=== PATIENT | female | born 1985 ===

== ENCOUNTER 2017-03-28 19:51 | Emergency (ER) | payer MEDICAID ==
--- NOTE | 2017-03-28 21:50 | OBDCSUM ---
Datetime: 03/28/2017 20:59 Discharged to, Provider: Home Follow up at, Provider: [facility] Disch Instr Activity: Normal activity Disch Instr Diet: Regular Discharge Diagnosis, Provider: False Labor - Undelivered Discharge Time: 03/28/2017 20:59 Follow up in weeks, Provider: 04/04/2017 Disch Referrals: None Disch Activity Restrictions: No lifting
--- NOTE | 2017-03-28 21:50 | OBHP ---
Datetime: 03/28/2017 20:27 IP Adm Impression: , intrauterine IP Admit Plan: Discharge home Admit Comment, IP Provider: 32 yo at 31.2 weeks gestation (with repeat C/s scheduled at 39.0 weeks for 05/21/17) confirmed by u/s presents to [facility] with complaints of intemittent back and abdomi nal pain. She describes pain as "cramps" and states that they occur every 15-20 minutes, and come and go, and do not radiate. Reports movement, denies loss of fluid, vaginal bleeding or regular co ntractions. Last sexual activity 3 days ago. OBhx: NVDx1 at term, C-sectionx1 due to breech presentation. Medical hx: none, denies Surg hx: x1 Social hx: denies tobacco use, alcohol use, drug use. Medications: vitamins Allergies: NKDA Pre- care: [facility]. Last visit to clinic: 03/24. Last u/s: 03/22, was told that fetus is now vertex presentation Next appt in clinic: 04/04 Next u/s: 04/18. ROS: no chest pain, no shortness of breath, no nausea, vomiting, diarrhea or GI upset, no burning with urination. PE: BP 103/62, HR 79 General: AAOx3, not in acute distress CV: S1,S2, RRR Abd: gravid, +BS Back: negative for CVA tenderness Extremities: no edema, no pain on palpation Pelvic exam: cervix long, thick, closed Assessment: 32 yo with IUP at 31.2 weeks. Had one contraction in [facility]. Not in active labor. Plan: Discharge home with labor pre-cautions. Addendum: discussed labor precautions with patient; advised to follow up with provider at [facility] as scheduled. [email or web address] Addendum by Dr. Howard: Patient evaluated by myself independently and I agree with the above. The p atient is a @ 31.2 wks, previous x 1, presents with abdominal contractions, no vagi nal bleeding, +fm, no other positive symptoms. Patient LTC, BTP=[id number] Cat-I, one contraction observed. Patient does not appear to be in labor, no other signs of or maternal distress, will dishcarge home with labor precautions. F/U in clinic Extremities - PN: Normal Abdomen - PN: Normal Back - PN: Normal Breast - PN: Not Done Lungs - PN: Normal Heart - PN: Normal Thyroid - PN: Not Done Neurologic - PN: Normal HEENT - PN: Normal General - PN: Normal FHR - Baseline A Provider: 150 Contraction Comments Provider: one noted Comments, ACOG Physical Exam: Cevix long, thick, closed. Gestation - Est Wks by US: 31.2 EGA AdmitDate IP: 31.2 IP Chief Complaint: Maternal discomfort NICHD Variability Prov Fetus A: Moderate 6-25bpm NICHD Accel Fetus A IP Provider: 15X15 FHR Category Provider Fetus A: Category I Dilatation, Provider: long Effacement, Provider: thick Station, Provider: -3
[2017-03-29 01:49] VITALS: BP 95/62; PULSE 79; RESP 17; TEMP 98.6
== END 2017-03-28 21:00 | disposition home or self-care (01) ==
LOC: H.EROB2 19:51
DX: O47.03 False labor before 37 completed weeks of gestation, third trimester (principal); Z3A.31 31 weeks gestation of pregnancy; Z87.59 Personal history of other complications of pregnancy, childbirth and the puerperium

== ENCOUNTER 2017-05-09 15:03 | Emergency (ER) | payer MEDICAID ==
[2017-05-09 16:04] VITALS: BMI 23.0
[2017-05-09] MEDS ORDERED: Lactated Ringer's 1,000 ML IV SCH (16:30)
[2017-05-09 18:33] LABS: RBC URINE 29 /hpf (0-3); URINE BACTERIA RARE (<OCC); URINE BILIRUBIN NEGATIVE (NEGATIVE); URINE BLOOD SMALL (NEGATIVE); URINE COLOR YELLOW (YELLOW); URINE GLUCOSE (UA) NEG (Normal); URINE KETONE NEGATIVE (NEGATIVE); URINE LEUKOCYTE ESTERASE MOD Leu/uL (Negative); URINE PROTEIN NEGATIVE (NEGATIVE); WBC URINE 6 /hpf (0-5)
[2017-05-09 23:12] VITALS: BP 92/50; PULSE 80; RESP 18; TEMP 98.3; O2SAT 100
== END 2017-05-09 18:52 | disposition home or self-care (01) ==
LOC: H.EROB2 15:03 → H.EROB 15:36 → H.EROB2 18:52
DX: O26.93 Pregnancy related conditions, unspecified, third trimester (principal); M54.5 Low back pain; Z3A.37 37 weeks gestation of pregnancy; Z87.59 Personal history of other complications of pregnancy, childbirth and the puerperium
CPT/HCPCS: 81003; 87086; 99283; J7120

== ENCOUNTER 2017-05-14 07:34 | Emergency (ER) | payer MEDICAID ==
[2017-05-14 08:02] VITALS: BMI 23.6
[2017-05-14 15:16] VITALS: BP 108/71; PULSE 72; RESP 18; TEMP 98.1; O2SAT 99
--- NOTE | 2017-05-14 18:09 | OBHP ---
Datetime: 05/14/2017 10:10 IP Admit Plan: Observation/Evaluation; Discharge home Admit Comment, IP Provider: 32YO @ 38wks IUP presented to [facility] with SROM. Findings inconsistent with SROM. Bedside u/s exhibited multiples pockets of fluids. Specu exam neg-neg nitrazine, neg pool ing and neg fern. Pt was seen having occasionalq ctx on monitor. Given clear liquids and asked to walk. Pt is comfortable, NAD. strip is reactive Cervx remains closed/thick/pos Will d/c pt home with follow up with Dr. Holden on . Pt given labor precautions and pt agrees with plan. Shweta Madison, PGY I [facility]...With PGY1 I saw and examined this pt. Agree with note JR HERI done by me 10cm - adequate fluid Pelvic Type - PN: Adequate Extremities - PN: Normal Abdomen - PN: Normal Back - PN: Normal Breast - PN: Normal Lungs - PN: Normal Heart - PN: Normal Thyroid - PN: Not Done Neurologic - PN: Normal HEENT - PN: Normal General - PN: Normal FHR - Baseline A Provider: 140 IP Hx Assessment: The History has been Reviewed and is Current EGA AdmitDate IP: 38.0 Vital Signs Provider: Reviewed; Within Normal Limits IP Chief Complaint: Suspected ruptured membranes NICHD Variability Prov Fetus A: Moderate 6-25bpm NICHD Accel Fetus A IP Provider: 15X15 FHR Category Provider Fetus A: Category I Genitourinary Exam: Normal DTRs - PN: Not Done Datetime: 05/14/2017 08:31 IP Adm Impression: Term, intrauterine ; No Active Labor; Intact Membranes Presentation-Admit: Vertex Pool Provider: Negative Nitrazine Provider: Negative Ferning Provider: Negative NICHD Decel Fetus A IP Provider: None Dilatation, Provider: 0 Effacement, Provider: 0 Station, Provider: high Datetime: 05/09/2017 16:26 IP Chief Complaint Other: low back pain
--- NOTE | 2017-05-14 18:11 | OBDCSUM ---
Datetime: 05/14/2017 10:08 Discharged to, Provider: Home Follow up at, Provider: Scheduled for a on 05/23/17 Disch Instr Activity: Normal activity Disch Instr Diet: Regular Discharge Diagnosis, Provider: False Labor - Undelivered Discharge Time: 05/14/2017 10:10 Follow up in weeks, Provider: 05/23/17 at 12:30 pm Disch Referrals: None Discharge Comment, Provider: [facility]...On rounds, I saw and examined this pt. Agree with note JR
== END 2017-05-14 10:15 | disposition home or self-care (01) ==
LOC: H.EROB2 07:34
DX: O47.1 False labor at or after 37 completed weeks of gestation (principal); Z3A.38 38 weeks gestation of pregnancy; O26.93 Pregnancy related conditions, unspecified, third trimester; R10.2 Pelvic and perineal pain

== ENCOUNTER 2017-05-23 10:44 | Inpatient (IN) | payer MEDICAID ==
[2017-05-23] MEDS: Lactated Ringer's 1,000 ML IV SCH ×2 (10:45→11:50)
[2017-05-23] MEDS ORDERED: Lactated Ringer's 1,000 ML IV SCH (10:45)
[2017-05-23] MEDS ORDERED: Oxytocin 30 UNITS in Sodium Chloride 0.9% 500 ML IV SCH (10:45)
[2017-05-23] MEDS ORDERED: ceFAZolin IV 1 gm in Dextrose 1 GM/50 ML BAG IVPB ONE (11:00)
[2017-05-23 11:18] LABS: BASO % 0.5 % (0.0-2.0); EOS % 0.6 % (0.0-4.0); HEMATOCRIT 38.3 % (34.0-47.0); LYMPH # 1.7 K/uL (1.0-4.3); LYMPH % 20.3 % (20.0-40.0); MEAN CELL VOLUME 91.3 fl (81.0-99.0); MEAN CORPUSCULAR HEMOGLOBIN 30.2 pg (27.0-31.0); MEAN CORPUSCULAR HGB CONC 33.1 g/dL (33.0-37.0); MEAN PLATELET VOLUME 9.2 fl (7.2-11.7); MONO # 0.6 K/uL (0.0-0.8); NEUT # 5.9 K/uL (1.8-7.0); NEUT % 71.6 % (50.0-75.0); NRBC % 0.1 % (0.0-0.0); RED CELL DISTRIBUTION WIDTH 12.8 % (11.5-14.5); WHITE BLOOD COUNT 8.3 K/uL (4.8-10.8)
[2017-05-23] MEDS ORDERED: Sodium Chloride 0.9% 10 ML IV ONE (12:13)
[2017-05-23] MEDS ORDERED: Morphine 1 mg/ml preservative-free Inj(Duramorph) ONE (12:13)
[2017-05-23] MEDS ORDERED: ePHEDrine 50 mg/ml Inj ONE (12:13)
[2017-05-23] MEDS ORDERED: Phenylephrine 10 mg/ml Inj ONE (12:13)
[2017-05-23] MEDS ORDERED: Midazolam 2 MG/2 ML VIAL ONE (13:53)
[2017-05-23] MEDS ORDERED: Propofol 10 mg/ml Inj (20 ML) ONE (14:14)
[2017-05-23] MEDS ORDERED: Oxycodone/Acetaminophen 5/325 mg Tab PO PRN (14:22)
[2017-05-23] MEDS ORDERED: DiphenhydrAMINE 50 mg/ml Inj IVP PRN ×2 (14:49→17:27)
[2017-05-23] MEDS ORDERED: Morphine 1 mg/ml preservative-free Inj(Duramorph) EPI ONE ×2 (14:49→17:27)
[2017-05-23] MEDS ORDERED: Oxytocin 30 UNITS in Sodium Chloride 0.9% 500 ML IV ONE (14:51)
--- NOTE | 2017-05-23 14:53 | OBADHP ---
Datetime: 05/23/2017 14:33 Admit Comment, IP Provider: Patient at 39+ wks, with previous csection, desires permanent sterilizat ion, presents for repeat csection with BTL today. Patient denies regular contractions, no vaginal ble eding or leakage of fluids. movement present. -- care at [facility] --O pos, 1hr GCT 65, Gc/Chlamydia negative, GBS negative, Rubella Immune, HIV negative, HepB Negat ruth, RPR- negative, PPD negative --Risks/ Benefits to procedure reviewed with patient and consent previously obtained in office. Juan smallwood also desires BTL and consent previously obtained as well --Ancef 1 gm --IVF running --Patient NPO --Anesthesia consulted Pelvic Type - PN: Adequate Extremities - PN: Normal Abdomen - PN: Normal Back - PN: Normal Breast - PN: Normal Lungs - PN: Normal Heart - PN: Normal Thyroid - PN: Normal Neurologic - PN: Normal HEENT - PN: Normal General - PN: Normal Presentation-Admit: Vertex FHR - Baseline A Provider: 140 Gestation - Est Wks by US: 39.0 Vital Signs Provider: Reviewed IP Chief Complaint: Scheduled Section NICHD Variability Prov Fetus A: Moderate 6-25bpm NICHD Accel Fetus A IP Provider: 15X15 NICHD Decel Fetus A IP Provider: None Genitourinary Exam: Normal DTRs - PN: Normal EGA AdmitDate IP: 39.2 IP Adm Impression: Term, intrauterine IP Admit Plan: Admit to unit; Initiate Section protocol Datetime: 05/14/2017 10:10 IP Hx Assessment: The History has been Reviewed and is Current FHR Category Provider Fetus A: Category I Datetime: 05/14/2017 08:31 Pool Provider: Negative Nitrazine Provider: Negative Ferning Provider: Negative Dilatation, Provider: 0 Effacement, Provider: 0 Station, Provider: high Datetime: 05/09/2017 16:26 IP Chief Complaint Other: low back pain Datetime: 03/28/2017 20:27 Contraction Comments Provider: one noted Comments, ACOG Physical Exam: Cevix long, thick, closed.
--- NOTE | 2017-05-23 15:19 | OBDS ---
DELIVERY PERSONNEL Delivery Doctor: Pablo West MD Scrub Nurse: Ashlee Parra OBT Procurement Officer: Mariela Braxton RN Anesthesiologist: dr. Long MATERNAL INFORMATION Delivery Anesthesia: Spinal Medications in Delivery: pitocin Estimated Blood Loss (ml): 800 Placenta Cultured: No Maternal Complications: None Provider Comments: Repeat csection with bilateral tubal ligation performed without difficulty. See O perative report. LABOR SUMMARY EDC: 05/28/2017 00:00 No. Babies in Womb: 1 Attempted: No Labor Anesthesia: None LABOR INFORMATION Reason for Induction: Not Applicable Onset of Labor: NIL, pt is scheduled for repeat c/s with BTL at 1230 today. Group B Beta Strep: Negative Antibiotics # of Doses: n/a Antibiotics Time of Last Dose: n/a Steroids Given: None Reason Steroids Not Administered: Not Applicable MEMBRANES Membranes Rupture Method: Artificial Rupture of Membranes: 05/23/2017 13:52 Length of Rupture (hrs): 0.00 Amniotic Fluid Color: Clear Amniotic Fluid Amount: Moderate Amniotic Fluid Odor: Normal STAGES OF LABOR Stage 3 hrs: 0 Stage 3 min: 0 CSECTION DELIVERY Primary Indication: Repeat Elective Secondary Indication: Repeat Elective CSection Urgency: Elective CSection Incidence: Repeat Labor: N/A Elective: N/A CSection Incision: Lower Uterine Transverse Sterilization Procedure: [place] BABY A INFORMATION Infant Delivery Date/Time: 05/23/2017 13:52 Method of Delivery: Born in Route : No : N/A Forceps: N/A Vacuum Extraction: N/A Shoulder Dystocia : No SHOULDER DYSTOCIA BABY A Delivery Date/Time: 05/23/2017 13:52 PRESENTATION/POSITION BABY A Presentation: Cephalic Cephalic Presentation: Vertex Breech Presentation: N/A PLACENTA INFORMATION BABY A Placenta Delivery Time : 05/23/2017 13:52 Placenta Method of Delivery: Expressed Placenta Status: Delivered SCORES BABY A Heart Rate 1 min: >100 bpm Resp Effort 1 min: Good Cry Reflex Irritability 1 min: Cough or Sneeze or Pulls Away Muscle Tone 1 min: Active Motion Color 1 min: Body [place], Extremities Blue Resuscitation Effort 1 min: Tactile Stimulation SCORE 1 MIN: 9 Heart Rate 5 min: >100 bpm Resp Effort 5 min: Good Cry Reflex Irritability 5 min: Cough or Sneeze or Pulls Away Muscle Tone 5 min: Active Motion Color 5 min: Body [place], Extremities Blue Resuscitation Effort 5 min: Tactile Stimulation SCORE 5 MIN: 9 INFANT INFORMATION BABY A Gestational Age at Delivery: 39.5 Gestational Status: Term Infant Outcome : Liveborn Condition : Stable Sex: Female IDENTIFICATION/MEDS BABY A ID Band Number: [id number] ID Band Location: Left Leg; Left Arm Vitamin K Given : Not Given Erythromycin Given: Not Given WEIGHT/LENGTH BABY A Birthweight (gms): 3280 Infant Weight (lb): 7 Infant Weight (oz): 4 Length Inches: 19.5 inches CORD INFORMATION BABY A No. Cord Vessels: 3 Nuchal Cord : N/A Cord Blood Taken: Yes Infant Suction: Mouth; Nose ASSESSMENT BABY A Infant Complications: None Physical Findings at Delivery: Within Normal Limits Respirations: Appears Normal Garment Looper/ALS Called : No Care By: Transferred To: [facility]
[2017-05-23] MEDS: Oxycodone/Acetaminophen 5/325 mg Tab PO PRN (20:16)
[2017-05-24] MEDS: Oxycodone/Acetaminophen 5/325 mg Tab PO PRN ×2 (00:49→12:48)
[2017-05-24 06:34] LABS: HEMATOCRIT 33.9 % (34.0-47.0); MEAN CELL VOLUME 90.4 fl (81.0-99.0); MEAN CORPUSCULAR HEMOGLOBIN 30.3 pg (27.0-31.0); MEAN CORPUSCULAR HGB CONC 33.6 g/dL (33.0-37.0); WHITE BLOOD COUNT 13.8 K/uL (4.8-10.8)
[2017-05-24] MEDS ORDERED: Lactated Ringer's 1,000 ML IV SCH ×2 (10:20→11:50)
--- NOTE | 2017-05-24 11:17 | OBPPN ---
Datetime: 05/24/2017 06:34 PP Nausea Prov: Denies PP Flatus Prov: No PP BM Prov: No PP Heart Prov: Normal PP Lungs Prov: Normal PP Abdomen/Uterus Prov: Normal PP Lochia Prov: Normal PP CVA Tenderness Prov: Normal PP Extremities Prov: Normal PP Impression Prov: Normal progression PP Plan Prov: Continue present management PP Progress Note Prov: POD 1 32 y/o now seen and examined at bedside. Pt reports pain in the area and pain is controlled with pain medications. Has layne in place and urine is non-bloody. Pt denies passing ga s per rectum and no BM yet. Pt is tolerating liquid diet well. Pt is formula feeding the baby. Denie s chest pain, dyspnea, nausea, vomiting or calf pain. Physical Exam: General: A_O, resting comfortably in bed, NAD HEENT: oral mucosa moist. Lungs: CTA B/L, no wheezing, rhonchi or rales CVS: RRR, S1, S2 NL ABD: ND, +BS; Incision: has dressing over the area. Dressing looks C/D/I. No bloody discharge or oozin g seen over the dressing. EXT: no edema, negative Dion's sign. Neuro/psych: AAOX3. assessement: 32 yo s/p , POD#1 Plan: D/C layne this morning. Liquid diet, advance to regular diet as tolerated. SCD for DVT prophylaxis Percocet and Ibuprofen for pain management Encourage and ambulatory Anticipate discharge on 05/26/17 Sultan Beavers, PGY1 OB H addendum: pt seen and examined by me with Dr. Holt. During rounds was called by nurse guarding patient. She states patient complains of diz ziness when she had her sit up to get her out of bed. Patient currently in supine position and states that feels lightheaded and dizzy when she attempts to sit up. She states that the last Percocet she took was last night and that this morning she took a Motrin for pain. O: supine 101/66 p84 sitting 92/56 p97 standing 62/32 p106 Alert and oriented to person, place and time skin: pale 12/5 hgb 12.7 12/6 hgb 11.4 I: Orthostatic Hypotension assoc with Syncope POD1 CD P: 1 liter of LR bolus Place layne cath Repeat cbc Transfuse with 2uprbc above plan d/w pt. d/c motrin Vital Signs Provider PP: Reviewed; Within Normal Limits
[2017-05-24 11:18] LABS: BASO % 0.1 % (0.0-2.0); EOS % 0.2 % (0.0-4.0); HEMATOCRIT 38.8 % (34.0-47.0); LYMPH # 1.3 K/uL (1.0-4.3); LYMPH % 8.2 % (20.0-40.0); MEAN CELL VOLUME 91.1 fl (81.0-99.0); MEAN CORPUSCULAR HEMOGLOBIN 30.2 pg (27.0-31.0); MEAN CORPUSCULAR HGB CONC 33.1 g/dL (33.0-37.0); MONO # 0.6 K/uL (0.0-0.8); MONO % 3.8 % (0.0-10.0); NEUT % 87.7 % (50.0-75.0); PLATELET COUNT 186 K/uL (130-400); RED CELL DISTRIBUTION WIDTH 12.9 % (11.5-14.5); WHITE BLOOD COUNT 15.9 K/uL (4.8-10.8)
[2017-05-24 11:54] LABS: RBC URINE 7 /hpf (0-3); URINE BILIRUBIN NEGATIVE (NEGATIVE); URINE BLOOD MODERATE (NEGATIVE); URINE COLOR YELLOW (YELLOW); URINE GLUCOSE (UA) NEG (Normal); URINE KETONE TRACE mg/dL (NEGATIVE); URINE LEUKOCYTE ESTERASE NEG Leu/uL (Negative); URINE PROTEIN NEGATIVE (NEGATIVE); URINE UROBILINOGEN 0.2-1.0 mg/dL (0.2-1.0); WBC URINE 1 /hpf (0-5)
[2017-05-24 12:38] LABS: NEUTROPHIL 84 % (42-75); TOTAL CELLS COUNTED 100
[2017-05-24 14:19] LABS: ALKALINE PHOSPHATASE 122 U/L (38-126); ALT/SGPT 42 U/L (9-52); AST/SGOT 45 U/L (14-36); BILIRUBIN,TOTAL 0.3 mg/dl (0.2-1.3); BLOOD UREA NITROGEN 4 mg/dl (7-17); CALCIUM 8.2 mg/dL (8.4-10.2); CARBON DIOXIDE 25 mmol/L (22-30); CHLORIDE 108 mmol/L (98-107); GFR AFRICAN-AMERICAN > 60; GLUCOSE,RANDOM 94 mg/dL (65-105); POTASSIUM 3.6 MMOL/L (3.6-5.0); SODIUM 136 mmol/l (132-148); TOTAL PROTEIN 5.2 G/DL (6.3-8.2)
[2017-05-24 14:20] LABS: ALB/GLOB RATIO 0.9 (1.0-2.1)
--- NOTE | 2017-05-25 09:21 | OBPPN ---
Datetime: 05/25/2017 07:25 PP Pain Prov: Within normal limits PP Nausea Prov: Denies PP Flatus Prov: Yes PP BM Prov: No PP Heart Prov: Normal PP Lungs Prov: Normal PP Abdomen/Uterus Prov: Normal PP CVA Tenderness Prov: Normal PP Extremities Prov: Normal PP Impression Prov: Normal progression PP Plan Prov: Continue present management PP Progress Note Prov: POD 2 32 y/o now seen and examined at bedside. Pt reports she felt dizzy yesterday when trying to get up from bed. Denies LOC. Denies any dizziness today. 2 L LR was given and layne was placed ye sterday to monitor I_O's. Pt reports pain is controlled with pain medications. Pt reports passing ga s per rectum and no BM yet. Pt is tolerating PO well. Denies chest pain, dyspnea, nausea, vomiting or calf pain. Physical Exam: General: A_O, resting comfortably in bed, NAD HEENT: oral mucosa moist. Lungs: CTA B/L, no wheezing, rhonchi or rales CVS: RRR, S1, S2 NL ABD: ND, +BS; Incision: rolanda intact. Wound looks clean, dry and intact. no induration, erythema or fluctuatio n. no dehiscence EXT: no edema, negative Dion's sign, calves nontender Neuro/psych: AAOX3, no grossly focal deficit, preserved affect and mood. Assessement: 32 yo s/p , POD#2 Dizziness resolved. Plan: D/C layne this morning Regular diet as tolerated. SCD for DVT prophylaxis Percocet and ibuprofen for pain management Encourage and ambulatory Anticipate discharge tomorrow Pt has appointment with Dr. Holden on 05/31/17 at 2:15 pm. Sultan Beavers, PGY1 The patient was seen with the resident I agree with the note Vital Signs Provider PP: Reviewed; Within Normal Limits
[2017-05-26 01:48] VITALS: BMI 23.6
--- NOTE | 2017-05-26 10:09 | OBDCSUM ---
Datetime: 05/26/2017 06:50 Discharged to, Provider: Home Follow up at, [place] [facility] [place] Activity: May be up to bathroom; May be up for meals; May Shower Disch Instr Diet: Regular Discharge Instructions, Provider: Routine instructions given Discharge Diagnosis, Provider: Term Delivered Discharge Time: 05/26/2017 10:00 Follow up in weeks, Provider: 1 week Disch Referrals: None Contraception discussed, Prov: Yes Disch Activity Restrictions: No exercising; No lifting; No driving; Minimize stair-climbing; No sexu al activity; Nothing in vagina - [place], tampons, douche Discharge Comment, Provider: PNV 1 tablet daily Ibuprofen 600 mg 1 tab every 6 hours as needed for mild pain. Percocet 5mg/325mg 1 tab every 6 hours as needed for moderate/severe pain. Senokot 8.6mg tabs at night Please follow up with Dr. Holden on 05/31/17 at 2:15 pm Attenind addendum: I saw and examined the patient myself, I reviewed the resident note above and a gree with findings and management. Discharge Diagnosis Prov Other: s/p repeat c/s and BTL Contraception after Delivery: Tubal Ligation
--- NOTE | 2017-05-26 10:09 | OBPPN ---
Datetime: 05/26/2017 06:48 PP Nausea Prov: Denies PP Flatus Prov: Yes PP BM Prov: Yes PP Heart Prov: Normal PP Lungs Prov: Normal PP Abdomen/Uterus Prov: Normal PP Lochia Prov: Normal PP CVA Tenderness Prov: Normal PP Extremities Prov: Normal PP C/S Incision Prov: Normal PP Impression Prov: Normal progression PP Plan Prov: Discharge PP Progress Note Prov: POD 3 32 y/o now seen and examined at bedside this AM. Denies any dizziness last night or this morning. Ambulating well w/o dizziness. Had BM last night. Pt is tolerating PO intake. Pt is formula feeding the baby. Denies headache, dizziness, chest pain, dyspnea, nausea, vomiting or calf pain. Physical Exam: General: A_O, resting comfortably in bed, NAD HEENT: oral mucosa moist. Lungs: CTA B/L, no wheezing, rhonchi or rales CVS: RRR, S1, S2 NL ABD: ND, +BS; Incision: intact rolanda. Wound looks clean, dry and intact. no induration, erythema or fluctuatio n. EXT: no edema, no calf tenderness. Neuro/psych: AAOX3 Assessement: 32 yo s/p , POD#2 Dizziness resolved. Plan: Discharge to home today PNV 1 PO qdaily Ibuprofen 600 mg 1 tab po q6h prn for mild pain. Percocet 5mg/325mg, 1 tab po q6hr prn for moderate/severe pain Senokot 8.6 mg PO 1 tab qhs. Encourage . Ambulation with caution,nothing per vaginal, no heavy lifting, if excessive bleeding or fever w/o relief from Tylenol go to ED. Pt has appointment with Dr. Holden on 05/31/17 at 2:15 pm wound check. Attending addendum: I saw and examined the patient myself at the bedside this morning. I reviewed the resident note ab ove and agree with findings and management. Patient to be discharged home today. Vital Signs Provider PP: Reviewed; Within Normal Limits
[2017-05-26 15:44] VITALS: BP 112/62; PULSE 90; RESP 20; TEMP 98.7; O2SAT 97
== END 2017-05-26 11:42 | disposition home or self-care (01) | DRG 371 ==
LOC: H.L&D 10:44 → H.OB/GYN 17:09
PROVIDERS: ADMIT Obstetrics & Gynecology; ATTEND Obstetrics & Gynecology
PROC: 10D00Z1 Extraction of Products of Conception, Low, Open Approach (ICD-10-PCS; principal; 2017-05-23)
PROC: 0UB70ZZ Excision of Bilateral Fallopian Tubes, Open Approach (ICD-10-PCS; 2017-05-23)
PROC: 4A1HXCZ Monitoring of Products of Conception, Cardiac Rate, External Approach (ICD-10-PCS; 2017-05-23)
DX: O34.211 Maternal care for low transverse scar from previous cesarean delivery (principal); Z30.2 Encounter for sterilization; I95.81 Postprocedural hypotension; Z37.0 Single live birth; Z3A.39 39 weeks gestation of pregnancy